=== PATIENT | female | born 1980 | race Caucasian/White ===

== ENCOUNTER 2020-12-19 19:59 | Emergency (ER) | payer SELFPAY ==
[~2020-12-19] VITALS: Ht 170.2 cm; Wt 72.6 kg
[2020-12-19 20:05] VITALS: BP_SYST 136
[2020-12-19] MEDS ORDERED: FLOEARD EACH EYE (20:12)
[2020-12-19 20:20] VITALS: BP_SYST 132
== END 2020-12-19 20:20 | disposition home or self-care (01) ==
LOC: SED 19:59
DX: H10.9 Unspecified conjunctivitis (principal)
CPT/HCPCS: 99283